=== PATIENT | male | born 1990 | race Hispanic/Latino ===

== ENCOUNTER 2021-05-20 11:08 | Emergency (ER) | payer SELFPAY | END 2021-05-20 12:01 | disposition home or self-care (01) | LOC: ERS 11:08 | DX: Z02.79 Encounter for issue of other medical certificate (principal); F17.210 Nicotine dependence, cigarettes, uncomplicated | CPT/HCPCS: 99282 ==

== ENCOUNTER 2021-06-10 00:21 | Emergency (ER) | payer SELFPAY ==
[2021-06-10] MEDS ORDERED: cefTRIAXone\\ROCEPHIN 500 MG VIAL ONE (01:39)
[2021-06-10] MEDS ORDERED: Lidocaine 1% (PF) 30 ML VIAL ONE (01:40)
[2021-06-10 02:15] LABS: Bilirubin Negative (Negative); Blood, Urine Negative (Negative); Clarity Turbid (Clear); Glucose, Urine (Dipstick) Normal (Negative); Ketone, Urine Negative (Negative); Leukocyte Negative Leu/uL (Negative); Nitrite Negative (Negative); Protein, Urine (Dipstick) 20 mg/dL (Neg-Trace); Specific Gravity, Urine 1.033 (1.002-1.036); Urobilinogen Normal mg/dL (Less than 2)
[2021-06-12 09:25] LABS: Chlam.trachomatis by PCR,Urine Not Detected (NotDetected)
== END 2021-06-10 01:56 | disposition home or self-care (01) ==
LOC: ERS 00:21
DX: R30.0 Dysuria (principal); F17.210 Nicotine dependence, cigarettes, uncomplicated
CPT/HCPCS: 81003; 87086; 87491; 87591; 96372; 99283; J0696; J2001

== ENCOUNTER 2021-06-10 03:24 | Emergency (ER) | payer SELFPAY ==
[2021-06-10] MEDS ORDERED: diphenhydrAMINE 25 MG CAP ONE (03:33)
== END 2021-06-10 03:40 | disposition home or self-care (01) ==
LOC: ERS 03:24
DX: L29.8 Other pruritus (principal); F17.210 Nicotine dependence, cigarettes, uncomplicated
CPT/HCPCS: 99282

== ENCOUNTER 2021-06-17 15:32 | Emergency (ER) | payer SELFPAY | END 2021-06-17 17:35 | disposition home or self-care (01) | LOC: ERS 15:32 | DX: S00.511A Abrasion of lip, initial encounter (principal); S30.811A Abrasion of abdominal wall, initial encounter; F17.210 Nicotine dependence, cigarettes, uncomplicated; L01.00 Impetigo, unspecified; S70.311A Abrasion, right thigh, initial encounter; X58.XXXA Exposure to other specified factors, initial encounter | CPT/HCPCS: 36416; 99283 ==

== ENCOUNTER 2021-08-24 21:22 | Emergency (ER) | payer OTHER, SELFPAY ==
[2021-08-24 23:09] LABS: #Eosinphils 0.1 thou/uL (0.0-0.7); #Lymphocytes 1.8 thou/uL (1.20-3.40); #Monocytes 0.7 thou/uL (0.11-0.59); #Neutrophils 6.9 thou/uL (1.40-6.50); %Basophils 0.3 % (0.0-1.0); %Eosinophils 0.5 % (0.0-10.0); %Lymphocytes 18.8 % (21.0-51.0); %Monocytes 7.4 % (0.0-10.0); Hemoglobin 15.2 g/dL (14.0-18.0); Mean Corpuscular HGB CONC 34.3 g/dL (32.0-36.0); Mean Corpuscular Volume 93.2 fL (78.0-98.0); Mean Platelet Volume 8.2 fL (7.4-10.4); Platelet Count 219 thou/uL (130-400); RBC Distribution Width 12.2 % (11.5-14.5); Red Blood Cell (RBC) Count 4.74 mill/uL (4.70-6.10); White Blood Cell (WBC) Count 9.4 thou/uL (4.8-10.8)
[2021-08-24 23:25] LABS: ALT (SGPT) 41 U/L (8-55); AST (SGOT) 21 U/L (5-34); Albumin 4.2 g/dL (3.5-5.0); Alkaline Phosphatase 79 U/L (40-110); Anion Gap 12 mmol/L (10-20); BUN (Urea Nitrogen) 16 mg/dL (8.9-20.6); Bilirubin, Total 0.7 mg/dL (0.2-1.2); Calc. Creatinine Clearance 0 mL/min (70-130); Calcium 8.9 mg/dL (7.8-10.44); Carbon Dioxide 28 mmol/L (22-29); Chloride 103 mmol/L (98-107); Globulin 2.6 g/dL (2.4-3.5); Glucose 98 mg/dL (70-105); Potassium 4.4 mmol/L (3.5-5.1); Protein, Total 6.8 g/dL (6.0-8.3); Sodium 139 mmol/L (136-145)
== END 2021-08-25 00:01 ==
LOC: ERS 21:22
DX: R11.10 Vomiting, unspecified (principal); R10.31 Right lower quadrant pain; R10.814 Left lower quadrant abdominal tenderness; F17.210 Nicotine dependence, cigarettes, uncomplicated
CPT/HCPCS: 74177; 80053; 85025

== ENCOUNTER 2022-03-15 01:09 | Emergency (ER) | payer SELFPAY | END 2022-03-15 03:00 | disposition home or self-care (01) | LOC: ERS 01:09 | DX: K02.9 Dental caries, unspecified (principal); F17.210 Nicotine dependence, cigarettes, uncomplicated | CPT/HCPCS: 99282 ==